=== PATIENT | male | born 2000 | race Hispanic/Latino ===

== ENCOUNTER 2022-06-23 09:29 | Emergency (ER) | payer OTHER ==
[~2022-06-23] VITALS: Ht 167.6 cm; Wt 131.5 kg
[2022-06-23 09:31] VITALS: BP 155/108
[2022-06-23] MEDS ORDERED: NIRM1TAB PO (10:54)
== END 2022-06-23 11:01 | disposition home or self-care (01) ==
LOC: EDH 09:29
DX: U07.1 COVID-19 (principal)
CPT/HCPCS: 99283; 87635; 87804 ×2; C9803